=== PATIENT | male | born 1990 | race Caucasian/White ===

== ENCOUNTER 2022-01-20 09:52 | Emergency (ER) | payer SELFPAY ==
[2022-01-20 10:00] VITALS: BP_SYST 131
[2022-01-20] MEDS ORDERED: DIPHTH,PERTUSS(ACELL),TET VAC 0.5 ML VIAL (Tdap) I.M. ONE (10:30)
[2022-01-20] MEDS ORDERED: IBUPROFEN 800 MG TABLET PO ONE (11:00)
[2022-01-20] MEDS ORDERED: NAPR-1172 PO (11:13)
--- NOTE | 2022-01-20 11:30 | NUR ---
Patient to ER bed triage to gown for evaluation. Side rails up.
--- NOTE | 2022-01-20 11:35 | NUR ---
ER at bedside examining patient.
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
--- NOTE | 2022-01-20 12:00 | NUR ---
Patient given written and verbal discharge instructions and verbalizes understanding. ER MD discussed with patient the results and treatment provided. Patient in stable condition. ID arm band removed. Rx of naprosyn given. Patient educated on pain management and to follow up with PMD. Pain Scale 0. Opportunity for questions provided and answered. Medication side effect fact sheet provided.
== END 2022-01-20 12:00 | disposition home or self-care (01) ==
LOC: SED 09:52
DX: S50.12XA Contusion of left forearm, initial encounter (principal); S20.212A Contusion of left front wall of thorax, initial encounter; S00.01XA Abrasion of scalp, initial encounter; Z79.899 Other long term (current) drug therapy; V89.2XXA Person injured in unspecified motor-vehicle accident, traffic, initial encounter; Y93.89 Activity, other specified; Y92.89 Other specified places as the place of occurrence of the external cause; Y99.8 Other external cause status
CPT/HCPCS: 71046-TC; 72040-TC; 73090; 90715; 99284